=== PATIENT | male | born 1995 | race Two or more races ===

== ENCOUNTER 2025-02-20 15:38 | Emergency (ER) | payer MEDICAID ==
[~2025-02-20] VITALS: Ht 182.9 cm; Wt 97.5 kg
[2025-02-20] MEDS: IV NS 0.9% 1,000 ML BAG IV ONE (16:30)
[2025-02-20 17:06] LABS: APPEARANCE,URINE CLEAR (CLEAR); BLOOD, URINE NEGATIVE Ery/uL (NEGATIVE); LEUKOCYTE ESTERASE ,URINE NEGATIVE (NEGATIVE); NITRITE, URINE NEGATIVE (NEGATIVE); UGLUCOSE NEGATIVE (NEGATIVE)
[2025-02-20 17:08] LABS: CALCIUM, SERUM 8.9 mg/dL (8.5-10.1); CREATININE 1.3 mg/dL (0.6-1.3); PLATELET COUNT (AUTO) 257 K/uL (150-450); RED BLOOD CELL COUNT(AUTO) 5.99 MIL/uL (4.5-6.0); RED CELL DISTRIBUTION WIDTH 13.7 % (11.5-15.0); SODIUM SERUM 138.0 mmol/L (136-145); UREA NITROGEN, BLOOD 15.0 mg/dL (7-18); WHITE BLOOD COUNT (AUTO) 9.8 K/uL (4.3-11.0)
[2025-02-20 17:14] LABS: ASPARTATE AMINOTRANSFERASE 13.0 U/L (15-37); TOTAL PROTEIN, SERUM 7.8 g/dL (6.4-8.2)
[2025-02-20 17:15] LABS: ADD URINE CULTURE YES; COARSE GRANULAR CASTS,URINE Few /LPF (None Seen); SQUAMOUS EPITHELIAL CELL,UR Few /HPF (None Seen)
[2025-02-20] MEDS ORDERED: FAMO20TA8 PO (17:35)
[2025-02-20] MEDS ORDERED: MAG355OR18 PO (17:35)
[2025-02-20] MEDS ORDERED: POTASSIUM CHLORIDE 20 MEQ TAB.PRT.SR PO ONE (17:47)
[2025-02-20] MEDS: POTASSIUM CHLORIDE 20 MEQ TAB.PRT.SR PO ONE (17:51)
[2025-02-20 18:19] VITALS: BP 111/84; TEMP 98.3; O2SAT 98
== END 2025-02-20 18:20 | disposition home or self-care (01) ==
LOC: ER 15:44
DX: R19.7 Diarrhea, unspecified (principal); F32.A Depression, unspecified; F41.9 Anxiety disorder, unspecified
CPT/HCPCS: 99283; 96360; 85025; 80048; 87086; 83690; 80076; 81001; 36415; J7030